=== PATIENT | female | born 1950 | race Caucasian/White ===

== ENCOUNTER → 2016-05-12 | Outpatient (CLI) | payer OTHER | LOC: ULTRA 06:51 | DX: D35.1 Benign neoplasm of parathyroid gland (principal); E04.1 Nontoxic single thyroid nodule ==

== ENCOUNTER → 2016-06-02 | Outpatient (CLI) | payer OTHER ==
--- NOTE | ~2016-06-02 | CNG ---
[facility] [place] [address] CYTO-NONGYN REPORT PROCEDURE Name: IRIS BURR Room #: [facility]#: [id number] Admission: 06/02/16 Date of : 46 Discharge: Report #: [id number] Path Case #: [id number] CYTOPATHOLOGY REPORT COLLECTION DATE: 06/02/2016 RECEIVED DATE: 06/02/2016 SUBMITTING PHYS: Dr. Miguel Ángel Taylor OTHER PHYS: Dr. Tremaine Mackey CLINICAL HISTORY: Bilateral thyroid mass. SPECIMEN(S) RECEIVED: A.Fine needle aspiration, Right thyroid B.Fine needle aspiration, Left thyroid * * * * * * * * * * * * FINAL DIAGNOSIS: A. Thyroid, Right thyroid, Fine needle aspiration: BETHESDA CATEGORY II. SPECIMEN CONSISTS OF SCANT BENIGN FOLLICULAR CELLS, ABUNDANT HEMOSIDERIN-LADEN MACROPHAGES, COLLOID, AND BLOOD. THIS PATTERN IS CONSISTENT WITH A BENIGN ADENOMATOID NODULE. B. Thyroid, Left thyroid, Fine needle aspiration: BETHESDA CATEGORY III. FOLLICULAR LESION OF UNDETERMINED SIGNIFICANCE. SPECIMEN CONSISTS OF ABUNDANT FOLLICULAR CELLS IN MICROFOLLICLES, FEW HURTHLE CELLS WITH SCANT COLLOID. THE DIFFERENTIAL DIAGNOSIS INCLUDES CELLULAR ADENOMATOID NODULE AND FOLLICULAR NEOPLASM. COMMENT: Nuclear features of papillary thyroid carcinoma are not identified. 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 Please correlate clinically and follow- up as indicated. [place]: Dr. Jovan Umanzor. (IUV; 06/05/16) PATHOLOGIST: Joselyn Anders M.D. REPORT ELECTRONICALLY SIGNED BY: Joselyn Anders M.D. DATE/TIME: 06/05/2016 15:14 * * * * * * * * * * * * GROSS PATHOLOGY: A. Fine needle aspiration, Right thyroid: The specimen is labeled "Iris Burr" and consists of three fixed slides, three air dried slides. Thirty mL of clear pink fluid in CytoLyt from the needle rinse is also submitted and one ThinPrep slide and a cell block were prepared from this material. B. Fine needle aspiration, Left thyroid: The specimen is labeled [facility] [place] [place] [address] CYTO-NONGYN REPORT PROCEDURE Name: IRIS BURR Room #: [facility]#: [id number] Admission: 06/02/16 Date of : 46 Discharge: Report #: [id number] Path Case #: [id number] "Iris Burr" and consists of four fixed slides, four air dried slides. Thirty mL of clear pink fluid in CytoLyt from the needle rinse is also submitted and one ThinPrep slide and a cell block were prepared from this material. (clt 06.02.2016) FILM OR TAPE LIBRARIAN(S): CHATO Mosley(ASCP), [facility] INITIAL CPT CODE(S): A; 18427, 26841 B; 90084, 94327 Professional services performed by [facility] at [address] [place] [address] Technical services performed by [facility] at [address] [place] [address]., [address], [place] [address]. [facility], [address] [place] [address] PHONE: [phone] DIRECTOR: Ramesh Schafer M.D. * * * END OF REPORT * * *
== END | disposition home or self-care (01) ==
LOC: ULTRA 07:09
DX: E04.2 Nontoxic multinodular goiter (principal)

== ENCOUNTER → 2016-06-21 | Outpatient (CLI) | payer OTHER ==
[~2016-06-21] MED LIST: ANTIFUNGAL CREA28 GM TOP; ASPIR 8181 MG PO; COZAAR 50 MG TA50 M2 PO; HUMALOG PE100 UNIT/M SUBQ; HYZAAR 100-251 EACH PO; K-DUR 20 MEQ T20 MEQ PO; LANTUS SUBQ; MYCOPHENOLIC A360 MG PO; NORCO 7.5-3251 EACH PO; OMEPRAZOLE 20 M20 M1 PO; ONDANSETRON HCL4 M1 IV PUSH; PREDNISONE 5 MG5 M1 PO; SIMVASTATIN40 MG PO; TACROLIMUS1 MG PO; TRIAMCINOLONE A80 G2 TOP; TUMS CHEWA500 MG/11 PO
--- NOTE | ~2016-06-21 | EKG ---
[address] [address] ELECTROCARDIOGRAM REPORT Name: SHERLY MELENDEZ [facility] [id number] Admission: 06/21/16 Attend Phys: Miguel Ángel Taylor MD Discharge: Date of : 46 Report #: [id number] THIS REPORT FOR: //name// [facility] Test Date: 2016-06-21 Test Time: 08:27:41 Pat Name: SHERLY MELENDEZ Department: Room: Gender: F Tailer Off: Radha GOMES : 1950 Requested By: Miguel Ángel Taylor Order Number: [id number] MD: Keon Nunez Measurements Intervals [place] Rate: 74 P: -14 RI: 154 QRS: -6 QRSD: 88 T: 119 QT: 365 QTc: 405 Interpretive Statements Sinus rhythm Abnormal T, consider ischemia, lateral leads No previous ECG available for comparison Electronically Signed On 06-21-2016 14:08:06 CDT by Keon Nunez [email or web address] <ELECTRONICALLY SIGNED> By: Keon Nunez MD 06/21/16 1408 826 6 Keon Nunez MD /OLIVIA
[2016-06-21 08:32] LABS: CALCIUM 9.7 mg/dL (8.5-10.1); CREATININE 0.9 mg/dL (0.6-1.0)
[2016-06-21 08:37] LABS: ALBUMIN 3.1 g/dL (3.4-5.0); TOTAL BILIRUBIN 0.2 mg/dL (<0.1-1.0); TOTAL PROTEIN 6.6 g/dL (6.4-8.2)
== END ==
LOC: CV 07:27
PROVIDERS: Otolaryngology Plastic Surgery within the Head & Neck
DX: N18.9 Chronic kidney disease, unspecified (principal); D44.0 Neoplasm of uncertain behavior of thyroid gland; N25.81 Secondary hyperparathyroidism of renal origin; Z94.0 Kidney transplant status

== ENCOUNTER 2016-07-05 05:31 | Day surgery (SDC) | payer OTHER ==
[~2016-07-05] VITALS: Ht 162.6 cm; Wt 89.4 kg
--- NOTE | ~2016-07-05 | S ---
[facility] [address] [facility] [place] [address] SURGICAL PATH RPT PROCEDURE Name: IRIS MELENDEZ Room #: DEP [facility]..#: [id number] Admission: 07/05/16 Date of : 46 Discharge: 07/06/16 Report #: [id number] Path Case #: [id number] PATHOLOGY REPORT COLLECTION DATE: 07/05/2016 RECEIVED DATE: 07/05/2016 SUBMITTING PHYS: Dr. Miguel Ángel Taylor OTHER PHYS: Dr. Tremaine Mackey SPECIMEN(S) RECEIVED: A.Thyroid B.Right inferior parathyroid C.Right superior parathyroid D.Left inferior parathyroid E.Left superior R/O parathyroid F.Level 6 neck dissection R/O parathyroid G.Left thyroid lobe * * * * * * * * * * * * FINAL DIAGNOSIS: A. 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 - Background thyroid with nodular hyperplasia. B. "Right inferior parathyroid", biopsy: - Thyroid tissue with nodular hyperplasia. C. "Right superior parathyroid", biopsy: - Hypercellular parathyroid gland present measuring 0.5 cm on the slide. (See comment) - Tissue predominantly thyroid with nodular hyperplasia. D. "Left inferior parathyroid", biopsy: - Thyroid tissue with nodular hyperplasia. E. "Left superior R/O parathyroid", biopsy: - Hypercellular parathyroid gland with adjacent thyroid tissue. F. "Level neck dissection, R/O parathyroid", dissection: - Hypercellular parathyroid gland present measuring 0.5 cm on the slide. - Lymph nodes (9) with no evidence of metastatic carcinoma. (9 nodes) G. "Left thyroid lobe", thyroid lobectomy: - Hypercellular parathyroid gland, intrathyroidal, measuring 2.5 cm grossly. - Background thyroid with nodular hyperplasia. SYNOPTIC CANCER STAGING REPORT Specimen Site: Thyroid gland structure Primary Tumor Site: Thyroid gland structure SPECIMEN [facility] [address] [place] [address] SURGICAL PATH RPT PROCEDURE Name: MELENDEZIRIS Ludy Room #: [facility]#: [id number] Admission: 07/05/16 Date of : 46 Discharge: 07/06/16 Report #: [id number] Path Case #: [id number] Procedure: Total thyroidectomy Lymph Node Sampling: Central compartment dissection (level -pretracheal, paratracheal and prelaryngeal / Delphian, perithyroidal) ): level TUMOR Histologic Type: Papillary carcinoma Common Significant Variants: Follicular variant, encapsulated / well demarcated Tumor Capsular Invasion: Yes Tumor Size: Greatest dimension (cm): 0.8 Tumor Laterality: Right lobe Tumor Focality: Unifocal Tumor Extent Extrathyroidal Extension: Not identified Accessory Tumor Findings Angioinvasion (vascular invasion): Not identified Lymphatic Invasion: Not identified MARGINS Margins: Margins uninvolved by carcinoma LYMPH NODES Regional Lymph Nodes: Number of Lymph Nodes Examined: Specify number: 9 Lymph Node Involvement: None identified STAGE (PTNM) Primary Tumor (pT): pT1a: Tumor 1 cm or less in greatest dimension limited to the thyroid. Regional Lymph Nodes (pN)#: pN0: No regional lymph node metastasis ADDITIONAL FINDINGS Additional Pathologic Findings: Adenomatoid nodule(s) or nodular follicular disease (e.g., nodular hyperplasia, goitrous thyroid) Parathyroid gland(s) Present Number of Parathyroid Glands: 4 Parathyroid Gland Features: Hypercellular COMMENT: Properly-controlled immunohistochemical stains are performed. CK JESÚS (block F1): no lymph node metastases identified; AE1/AE3 (block F2): no lymph node metastases identified. Within specimen C, the small portion of parathyroid gland was not present in the material examined for frozen section. It was identified in the non-frozen tissue (inked red). Pediatric Nurse Practitioner slides of the entire case were co-reviewed with Dr. Joselyn Anders. Correlation with clinical history, additional laboratory data and surgical findings is recommended. [place] [address] SURGICAL PATH RPT PROCEDURE Name: MELNEDEZIRIS Cuellar Room #: DEP [facility] Tommy#: [id number] Admission: 07/05/16 Date of : 46 Discharge: 07/06/16 Report #: [id number] Path Case #: [id number] Miguel Ángel Brandon on 07/07/16 at approximately 3:45 PM. (CLW:csd; d/t: 07/07/2016) PATHOLOGIST: Corazon Barry M.D. REPORT ELECTRONICALLY SIGNED BY: Corazon Barry M.D. DATE/TIME: 07/07/2016 22:45 * * * * * * * * * * * * GROSS PATHOLOGY: A. The first specimen is received fresh from the OR labeled, "Melendez, Iris A. and right thyroid". It consists of an unoriented 8.3 gram lobe of thyroid measuring 4.5 x 4.0 x 1.5 cm. The external surface is red-brown and smooth. It is inked blue. The specimen is serially sectioned to reveal two dominant nodules. One nodule measures 1.6 x 1.2 x 0.9 cm. The second nodule measures 0.7 x 0.6 x 0.6 cm. The touch imprints are performed over half of the larger nodule. The remaining half of the larger nodule is submitted for one frozen section. The frozen section is then submitted as A1. The smaller nodule is submitted for a second frozen section. The second frozen section is then submitted as A2. The remaining thyroid is entirely submitted as A3 through A5. B. The second specimen is received fresh from the OR labeled, "Melendez, Iris A. and right inferior parathyroid". It consists of a 0.1 gram glandular tissue fragment measuring 0.7 cm. It is inked blue. It is entirely submitted for one frozen section. The frozen section has been submitted as B1. C. The third specimen is received fresh from the OR labeled, "Melendez, Iris A. and right superior parathyroid". It consists of a 0.8 gram glandular tissue fragment measuring 2.2 x 1.0 x 0.8 cm. It is inked black. It is bisected and half is submitted for one frozen section. The frozen section and the unfrozen (additionally inked red) are entirely submitted as C1. D. The fourth specimen is received fresh from the OR labeled, "Melendez, Iris A. and left inferior parathyroid". It consists of a less than 0.1 gram glandular tissue fragment measuring 0.5 cm. It is inked green. It is entirely submitted for one frozen section. The frozen section is then submitted as D1. E. The fifth specimen is received fresh from the OR labeled, "Iris Melendez and left superior R/O parathyroid". It consists of a 0.5 cm glandular tissue fragment weighing less than 0.1 grams. It is entirely submitted for one frozen section. The frozen section is then submitted as E1. (CLW;rupal; d/t: 07/05/2016) F. The specimen is received fresh from the OR labeled with the patient's name, Deonte, and "level neck dissection, rule out parathyroid" and consists of fibroadipose tissue measuring an aggregate of 4 x 5 x 0.5 cm. The entire specimen is submitted for [address] [address] SURGICAL PATH RPT PROCEDURE Name: IRIS MELENDEZ Room #: DEP [facility]..#: [id number] Admission: 07/05/16 Date of : 46 Discharge: 07/06/16 Report #: [id number] Path Case #: [id number] frozen section as FSF1 and FSF2, subsequently submitted for permanent sections as F1 and F2. (IUV:csd; d/t: 07/05/2016) G. The specimen is received in formalin labeled "Iris Melendez, left thyroid lobe". Received is a 10 g thyroid lobe measuring 4.2 x 3.5 x 1.6 cm in greatest dimensions. The capsule is intact displaying a slight amount of overlying adhesions. The specimen is inked black. Sectioning reveals an unencapsulated pink-yoon nodule measuring 2.5 x 1.5 x 1.2 cm in greatest dimensions, which encompasses approximately 30% of the lobe. Remainder of the thyroid lobe is comprised of normal red-brown thyroid parenchyma. Alternating sections are submitted in cassettes G1 through G5. (CAA; 07/05/2016) FROZEN SECTION DIAGNOSIS: (Corazon Barry M.D.): A. "Right thyroid": - TPA1-rare follicular cells and blood. - FSA1- predominantly macrofollicular nodule. - FSA2-highly suspicious for papillary carcinoma. B. "Right inferior parathyroid": - Thyroid tissue. C. "Right superior parathyroid": - Thyroid tissue. D. "Left inferior parathyroid": - Thyroid tissue. E. "Left superior R/O parathyroid": - Hypercellular parathyroid with adjacent thyroid tissue. The case was discussed with Dr. Miguel Ángel Taylor in the operating room immediately following the frozen section diagnoses and written reports were placed in the patient's chart. Testing performed by [facility] at [facility] [address] [place] [address] (Joselyn Anders M.D.) F. SF1 and FSF2, level 6 neck dissection, rule out parathyroid: - Parathyroid tissue present. - Fibroadipose tissue along with lymph nodes and thyroid tissue present. These findings are discussed with Dr. Miguel Ángel Taylor in OR1, and a written report is placed in the patient's chart. (IUV:csd; d/t: 07/05/2016) Professional services performed by [facility] at [facility] [address] [place] [address] [place] [address] SURGICAL PATH RPT PROCEDURE Name: IRIS MELENDEZ Ludy Room #: [facility] Tommy#: [id number] Admission: 07/05/16 Date of : 46 Discharge: 07/06/16 Report #: [id number] Path Case #: [id number] CLINICAL HISTORY: Secondary hyperparathyroidism and follicular lesion of undetermined significance. INITIAL CPT CODE(S): A; 18879, 33422, 99066, 18617 B; 00036, 42776 C; 42399, 44045(2) D; 01534, 50385 E; 24853, 27400 F; 28927, 29324, 49289, 75296, 74891 G; 66498, 38680 Professional services performed by [facility] at [place] [address] [address], [place] [address] Technical services performed by [facility] at [address] [place] [address], [place] [address]. [facility] [address] [place] [address] PHONE: [phone] DIRECTOR: Ramesh Schafer M.D. * * * END OF REPORT * * *
--- NOTE | ~2016-07-05 | O ---
[facility] [place] [address] OPERATIVE REPORT Name: SHERLY MELENDEZ Room #: 402-P [facility] M.R.#: [id number] Admission: 07/05/16 Attend Phys: Miguel Ángel Taylor MD Discharge: Date of : 46 Report #: [id number] THIS REPORT FOR: //name// CC: Tremaine Taylor DATE OF SERVICE: 07/05/2016 SURGEON: Miguel Ángel Taylor M.D. PREOPERATIVE DIAGNOSES: 1. Secondary hyperparathyroidism. 2. 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 3. Chronic kidney disease. 4. History of kidney transplant. 5. Hypercalcemia. POSTOPERATIVE DIAGNOSES: 1. Secondary hyperparathyroidism. 2. 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 3. Chronic kidney disease. 4. History of kidney transplant. 5. Hypercalcemia. 6. Papillary carcinoma of the thyroid. PROCEDURES: 1. Total thyroidectomy. 2. Total parathyroidectomy. 3. Autotransplantation, right superior parathyroid, right sternocleidomastoid muscle. 4. Level 6 neck dissection. 5. Nerve integrity monitoring x 2-1/2 hours. INDICATIONS: The patient is a 65-year-old female referred by her packer denture, Dr. Johnson for definitive treatment of ongoing and persistent hypercalcemia associated with hyperparathyroidism felt to be secondary in nature. In addition, on workup, the patient was found to have a multinodular gland. Fine needle aspiration showed a follicular nodule of uncertain character. Recommendations were made for thyroid biopsy at the same time. The patient's PTHs have been in the 191 range with a calcium of 10.8. PTH has been as high as 285. In light of the above, options of surgery were discussed. The patient has been brought to [facility] because of availability of iPTH not available at [facility]. [facility] [address] [place] [address] OPERATIVE REPORT Name: SHERLY MELENDEZ Room #: 402-P [facility]#: [id number] Admission: 07/05/16 Attend Phys: Miguel Ángel Taylor MD Discharge: Date of : 46 Report #: [id number] DESCRIPTION OF PROCEDURE: The patient was brought to the operating room and placed supine on the operating table. After adequate general anesthesia was achieved via endotracheal intubation with a nerve integrity monitoring endotracheal tube, the shoulder was placed and the neck hyperextended. Planned incision was marked out in a relaxed skin tension line just above the manubrium and injected with 1% Xylocaine with 1:100,000 epinephrine. As a separate part of the procedure, the electrodes from the endotracheal tube were connected to the nerve integrity monitoring. Needle electrodes were placed in the soft tissue overlying the sternum and contralateral shoulder. Electrode resistance and impedance was measured and found to be acceptable. Threshold and stimulus intensity parameters were set and the patient was monitored for the entirety of the case of approximately 2-1/2 hours in order to locate and protect the recurrent laryngeal nerve. She was then prepped and draped in a sterile fashion. Procedure began with an incision through skin and subcutaneous tissue and platysma. Subplatysmal flaps were elevated superiorly and inferiorly. Dissection was made down to the strap muscles. These were divided vertically in the midline and retracted laterally. Dissection was then made down to the thyroid gland. Beginning on the right side, the soft tissue was elevated off the thyroid from superior to inferior. The inferior thyroid vessels were sequentially identified, clamped between Ligaclips and divided. Superior thyroid vessels as well were clamped between Ligaclips and divided. The middle thyroid vein was taken down between Ligaclips and divided. Dissection began inferiorly. There was a nodule external to the thyroid on the right. This was removed as a rule out right inferior parathyroid. Dissection then continued superiorly. The superior parathyroid was found on this side and also dissected as rule out parathyroid. Dissection then continued along the trachea. The isthmus was divided with the harmonic yosvany. The gland was rolled up on to the trachea. I found the recurrent laryngeal nerve in its usual anatomic position. This was confirmed with probe stimuli and dissected up to the cricothyroid joint. Garg's ligament was taken down sharply on this side and the thyroid gland lobe was removed. This was delivered off the field for biopsy. Frozen section did reveal a follicular lesion, but in the smaller nodule a lesion suspicious for papillary carcinoma. Once the right lobe had been removed, attention was then turned to the left side. This lobe also was dissected. Middle thyroid vein was taken down between Ligaclips. The inferior vessels were clamped between Ligaclips and divided. The superior vessels were taken down between Ligaclips and divided. This gland was rolled up on to the trachea. Dissection in the tracheoesophageal groove revealed the recurrent nerve. This was tracked superiorly to the cricothyroid joint and this was confirmed with probe stimuli. Garg's ligament was taken down sharply keeping the nerve in direct vision for protection and this left [facility] [address] [place] [address] OPERATIVE REPORT Name: SHERLY MELENDEZ Room #: [facility]#: [id number] Admission: 07/05/16 Attend Phys: Miguel Ángel Taylor MD Discharge: Date of : 46 Report #: [id number] lobe delivered off the field in formalin. The parathyroids had been identified on the left. The superior was confirmed with the frozen section, the inferior was extra thyroid tissue. Attention was then turned to the right side. There was a mass extending behind the esophagus on this side. This was also dissected and found to be extraneous thyroid tissue. Attention then continued inferiorly on this side and another biopsy was taken of it and another extraneous thyroid tissue also confirmed as thyroid. At this point because of the papillary carcinoma and because the nonlocation of the 2 inferior parathyroids, a level 6 neck dissection was begun. Beginning on the left side, the recurrent laryngeal nerve was dissected down to the upper mediastinum. The soft tissue was swept from lateral to medial to the midline. Dissection was then done on the recurrent laryngeal nerve on the right side down to the upper mediastinum and again dissection continued from lateral to medial and then the level 6 neck dissection was delivered off the field for frozen section. The borders of this dissection included the innominate artery, superiorly to the cricoid and carotid artery to carotid artery. With dissection in there, parathyroids were found. The patient's preoperative iPTH that had been drawn in the preoperative period and found to be in the high 400s was confirmed to decrease to 60 with the first draw. A second PTH was drawn, but is unavailable at time of this dictation. Hemostasis was assured with bipolar cautery and clip ligature. The wounds were then irrigated. A 10-Frisian Vinny drain was placed through a separate stab incision, curled into the wound and connected to bulb suction. Strap muscles were then closed vertically in the midline with interrupted 3-0 Vicryl and 3-0 Vicryl was used to close platysmal layer, 4-0 Vicryl deep dermal sutures and a 5-0 running subcuticular Prolene on skin. Mastisol and Steri-Strips were applied. The drain was sutured in place with 2-0 silk and connected to bulb suction. The patient was then returned to anesthesia, awake without difficulty, returned to recovery in good condition. Sponge and needle counts were correct. There were no complications and the blood loss was about 50 mL. She will be watched overnight for monitoring. Their concern for hungry bone syndrome and the patient has been warned she may have been in the hospital several days depending on the calcium. The patient's has been given written and verbal discharge instructions and emergent emergency precautions. DISCHARGE MEDICATIONS: Will include cephalexin 500 mg b.i.d. for 10 days, Phenergan suppository 25 mg 1 per rectum q. 4-6 hours p.r.n., hydrocodone/acetaminophen 7.5/325 one to two q. 4-6 hours p.r.n., Synthroid 125 mcg 1 p.o. q. day and Tums 500 mg 2 tablets b.i.d., Rocaltrol 0.5 mcg b.i.d. for 7 days, then 0.25 mcg b.i.d. for 7 days and 0.25 mcg q. day. <ELECTRONICALLY SIGNED> By: Miguel Ángel Taylor MD 07/05/16 1614 1352 1547 Miguel Ángel Taylor MD /nt
[~2016-07-05 05:31] MED LIST changes: -NORCO 7.5-3251 EACH PO; -ONDANSETRON HCL4 M1 IV PUSH; -TUMS CHEWA500 MG/11 PO
[2016-07-05 08:30] VITALS: BP 157/76
[2016-07-05] MEDS ORDERED: ONDANSETRON HCL4 M1 IV PUSH (14:07)
[2016-07-05] MEDS ORDERED: TUMS CHEWA500 MG/11 PO (14:07)
[2016-07-05] MEDS ORDERED: NORCO 7.5-3251 EACH PO (14:07)
[2016-07-05 16:00] VITALS: BP 181/63
[2016-07-05 16:30] VITALS: BP 181/84
[2016-07-05 17:00] VITALS: BP 158/78
[2016-07-05 17:30] VITALS: BP 158/77
[2016-07-05 19:40] VITALS: BP 153/82
[2016-07-05 22:09] LABS: ALBUMIN 3.1 g/dL (3.4-5.0); CALCIUM 8.8 mg/dL (8.5-10.1); MAGNESIUM 1.7 mg/dL (1.8-2.4)
[2016-07-06 00:02] VITALS: BP 138/81; BP 160/76
[2016-07-06 08:00] VITALS: BP 119/43
[2016-07-06 12:58] VITALS: BP 119/43
[2016-07-06 13:06] VITALS: BP 119/43
== END 2016-07-06 14:45 | disposition home or self-care (01) ==
LOC: OR 05:31 → TBA 05:31 → 4N 05:31 → OR 12:50 → 4N 15:59 → OR 07-06 14:45
PROVIDERS: Otolaryngology Plastic Surgery within the Head & Neck
DX: D44.0 Neoplasm of uncertain behavior of thyroid gland (principal); I12.9 Hypertensive chronic kidney disease with stage 1 through stage 4 chronic kidney disease, or unspecified chronic kidney disease; N18.9 Chronic kidney disease, unspecified; E04.2 Nontoxic multinodular goiter; E78.00 Pure hypercholesterolemia, unspecified; E83.52 Hypercalcemia; Z94.0 Kidney transplant status
CPT/HCPCS: 50010; 50101; 50331; 50386; 50417; 52190; 52220; 52225; 52287; 56524; 56526; 56528; 56760; 57006; 62110; 62900; 64031; 65006; 70005